=== PATIENT | female | born 1985 | race Caucasian/White ===

== ENCOUNTER → 2017-10-17 | Emergency (ER) | payer OTHER ==
[~2017-10-17] VITALS: Ht 160 cm; Wt 40.8 kg
== END | disposition left against medical advice (07) ==
LOC: ER 21:25
DX: Z53.20 Procedure and treatment not carried out because of patient's decision for unspecified reasons (principal)

== ENCOUNTER → 2017-11-27 | Emergency (ER) | payer OTHER ==
[~2017-11-27] VITALS: Ht 160 cm; Wt 41.7 kg
[~2017-11-27] MED LIST: INTESTINEX680 M1 PO; ONDANSETRON HCL4 MG PO; ZANTAC300 MG PO
== END | disposition home or self-care (01) ==
LOC: ER 01:44
DX: K52.9 Noninfective gastroenteritis and colitis, unspecified (principal)